=== PATIENT | female | born 1945 | race Caucasian/White ===

== ENCOUNTER 2019-11-08 17:02 | Inpatient (IN) ==
[2019-11-08 17:11] VITALS: BMI 18.8
--- NOTE | 2019-11-08 18:10 | DR.GENAD ---
HPI Time Seen Time Seen by Provider: 11/08/19 18:09 PCP Primary Care Physician: NOEL HPI Comment HPI Comment: PATIENT IS 74YR OLD FEMALE IN ER WITH LOW BLOOD PRESSURE. PATIENT IS FROM [facility] VIA EMS WITH LOW BLOOD PRESSURE. SHE IS BEING RUNNING FEVER FOR FEW DAYS. SWAB FOR COVID 19 YESTERDAY. REPORT PENDING. SHE IS WEAK AND SLIGHTLY CONFUSED. DENIES CHEST PAIN OR ABDOMINAL PAIN. Complaint/Symptoms Chief Complaint Doctors Comments: LOW BLOOD PRESSURE, FEVER AND INCREASING SOB TIMES FEW DAYS. Chief Complaint:: CHRISTINE CAREY. EMS BRINGS PT. IN FROM [facility] WITH C/O HYPOTENSION. PT. WAS TESTED YESTERDAY FOR COVID 19. PT. STATES SHE HAS BEEN HAVING A FEVER FOR A FEW DAYS AND HAS SHORTNESS OF BREATH. COVID-19 Coronavirus risk:travel/contact w/high risk person: Yes Has patient experienced Coronavirus symptoms: Yes Coronavirus symptoms experienced: Fever, Coughing and Shortness of Breath Nurses notes reviewed Nurses Notes Review: Yes Source History Provided: Patient and EMS Mode of Arrival Mode of Arrival: EMS Timing Onset of Chief Complaint: 11/08/19 Came on: Suddenly Duration Duration: Constant Duration: Days PMH PMH Past Medical History: Yes Past Medical History: Anemia, COPD, Depression, Dyslipidemia, GERD and Hypertension Past Medical History Comment: BIPOLAR, ARF Past Surgical History: Yes Family History History of Family Medical Conditions: No Social History Does patient currently use any type of tobacco product: No Have you used tobacco products in the last 12 months: No Type of Tobacco Use: None Does any household member use tobacco: No Alcohol Use: None Do you use any recreational Drugs:: No Lives Where: Intermediate Travel Risk Coronavirus risk:travel/contact w/high risk person: Yes Has patient experienced Coronavirus symptoms: Yes Coronavirus symptoms experienced: Fever, Coughing and Shortness of Breath Infectious screening In the last 2 months have you had wt loss of >10#?: NO Have you had fever, night sweats or hemotysis?: No Have you traveled outside the country in the last 6 months?: No Isolation: Droplet ROS Review of Systems Constitutional: See HPI, Fever, Malaise, Weakness and Fatigue Eyes: No Symptoms Reported and See HPI; negative Blurred Vision and Diplopia ENTM: See HPI, Nose Discharge and Nose Congestion; negative Ear Pain and Throat Pain Respiratoy: No Symptoms Reported, See HPI, Moist Cough and Short of Breath; negative Wheezing Cardiovascular: No Symptoms Reported and See HPI; negative Chest Pain and Edema Gastrointestinal/Abdominal: See HPI and Nausea; negative Abdominal Pain and Diarrhea Genitourinary: See HPI and Other (DECREASE URINE OUT PUT.); negative Dysuria Neurological: See HPI, Weakness and Other (AMS.); negative Headache and Dizziness Musculoskeletal: See HPI and Muscle Pain; negative Back Pain Integumentary: See HPI and Dryness; negative Change in Color, Rash and Juandice Hematologic/Lymphatic: No Symptoms Reported and See HPI; negative Easy Bruising and Swollen Glands Endocrine: See HPI, Increased Thirst, Increased Urine (DECREASE URINE OUT PUT.) and Decreased Appetite Psychiatric: No Symptoms Reported and See HPI All Other Systems: Reviewed and Negative PE Vital Signs Vitals: Temperature 98.8 F Pulse Rate [Right Brachial] 69 Pulse Rate 73 Respiratory Rate 20 Blood Pressure [Right Arm] 129/81 Blood Pressure 154/92 O2 Sat by Pulse Oximetry 97 General Limitations: No Limitations General Appearance: In Distress and Other (CONFUSE.) Head Head Exam: Normal Inspection and Atraumatic Eyes Eye exam: Normal Appearance and PERRL; negative Scleral Icterus and Conjunctival Injection ENT ENT Exam: Normal Exam, Normal Oropharynx, Normal External Ear Exam and TM's Normal Bilaterally External Ear Exam: Normal External Inspection; negative Mastoid Tenderness TM/Canal Exam: Bilateral: Normal Nose Exam: Normal Nose Exam Mouth Exam: Normal Inspection; negative Lip Swelling and Tongue Swelling Throat Exam: Normal Inspection; negative Tonsillar Erythema, Tonsillomegaly and Tonsillar Exudate Neck Neck Exam: Normal Inspection and Trachea Midline; negative Tenderness and Lymphadenopathy Chest Chest Inspection: Normal Inspection and Symmetric Chest Wall Rise; negative Tenderness Respiratory Respiratory Exam: Respiratory Distress; negative Accessory Muscle Use and Chest Wall Tenderness Respiratory Exam: Bilateral: Rhonchi and Lower: Rhonchi Cardiovascular Cardiovascular Exam: Regular Rate, Normal Rhythm and Normal Heart Sounds; negative Systolic Murmur and Diastolic Murmur Abdominal Exam Abdominal Exam: Normal Inspection, Normal Bowel Sounds and Soft; negative Tenderness Extremities Extremities Exam: Normal Inspection and Normal Capillary Refill; negative Tenderness, Edema and Calf Tenderness Back Back Exam: Normal Inspection; negative Tenderness, (R) CVA Tenderness and (L) CVA Tenderness Neurologic Neurological Exam: Alert, Oriented X3 and Other (AMS.); negative Motor Sensory Deficit Psychiatric Psychiatric Exam: Flat Affect Skin Skin Exam: Dry MDM Differential Diagnosis Differential Diagnosis: AMS, CVA, SEPSIS, HYPOTENSION, DEHYDRATION, UTI. COURSE Treatment Treatment: SEE ORDERS. Education/Counseling Education/Counseling: Patient Educated On: Diagnosis ROR Labs Reviewed Laboratory Results Reviewed?: Yes Result Diagrams: 11/12/19 04:35 11/12/19 04:35 Laboratory: 11/08/19 18:00 Blood Blood Culture - Final 11/08/19 17:50 Blood Blood Culture - Final WBC 1.7 X10^3/uL (3.6-10.0) L* 11/09/19 06:10 RBC 3.83 X10^6/uL (3.5-5.4) 11/09/19 06:10 Hgb 11.1 g/dL (12.0-16.0) L 11/09/19 06:10 Hct 33.7 % (36.0-47.0) L 11/09/19 06:10 MCV 87.9 fL (80.0-100.0) 11/09/19 06:10 MCH 29.0 pg (27.0-34.0) 11/09/19 06:10 MCHC 33.0 g/dL (33.0-35.0) 11/09/19 06:10 RDW 14.7 % (11.6-16.5) 11/09/19 06:10 Plt Count 139 X10^3/uL (150.0-450.0) L 11/09/19 06:10 Plt Count Comment Adequate (ADEQUATE) 11/09/19 06:10 MPV 8.0 fL (7.4-11.0) 11/09/19 06:10 Neut % (Auto) 59.2 % (42.0-75.0) 11/09/19 06:10 Lymph % (Auto) 30.0 % (21.0-51.0) 11/09/19 06:10 [place] % (Auto) 10.6 % (0.0-13.0) 11/09/19 06:10 Eos % (Auto) 0.0 % (0.9-2.9) L 11/09/19 06:10 Baso % (Auto) 0.2 % (0.2-1.0) 11/09/19 06:10 Neut # (Auto) 1.0 x10^3/uL (2.2-4.8) L 11/09/19 06:10 Lymph # (Auto) 0.5 X10^3/uL (1.3-2.9) L 11/09/19 06:10 [place] # (Auto) 0.2 x10^3/uL (0.3-0.8) L 11/09/19 06:10 Eos # (Auto) 0.0 x10^3/uL (0.0-0.2) 11/09/19 06:10 Baso # (Auto) 0.0 X10^3/uL (0.0-0.1) 11/09/19 06:10 Absolute Nucleated RBC 0.1 /100WBC 11/09/19 06:10 Total Counted 50 11/09/19 06:10 Neutrophils % (Manual) 62 % (39-76) 11/09/19 06:10 Lymphocytes % (Manual) 32 % (13-43) 11/09/19 06:10 Monocytes % (Manual) 6 % (4-9) 11/09/19 06:10 Plt Morphology Comment Normal (NORMAL) 11/09/19 06:10 RBC Morphology Normal (NORMAL) 11/09/19 06:10 Sample Site Lr 11/08/19 18:23 ABG pH 7.430 (7.35-7.45) 11/08/19 18:23 ABG pCO2 44.0 mmHg (35.0-45.0) 11/08/19 18:23 ABG pO2 88.0 mmHg (80.0-100.0) 11/08/19 18:23 ABG HCO3 29.2 mmol/L (22-26) H 11/08/19 18:23 ABG O2 Saturation 97.0 % (90-100) 11/08/19 18:23 ABG Base Excess 4.3 mmol/L (-2.0-2.0) H 11/08/19 18:23 David Test Pos 11/08/19 18:23 A-a Gradient 7.0 mmHg 11/08/19 18:23 FiO2 21.0 11/08/19 18:23 Blood Gas Comments Jeff well cb 11/08/19 18:23 Sodium 137 mmol/L (136-145) 11/09/19 06:10 Corrected Sodium 138 mmol/L (136-145) 11/09/19 06:10 Potassium 4.2 mmol/L (3.5-5.1) 11/09/19 06:10 Chloride 100 mmol/L (98-107) 11/09/19 06:10 Carbon Dioxide 28.6 mmol/L (21-32) 11/09/19 06:10 BUN 29 mg/dL (7-18) H 11/09/19 06:10 Creatinine 1.39 mg/dL (0.55-1.02) H 11/09/19 06:10 Est GFR (MDRD) Af Amer 48 (>60) L 11/09/19 06:10 Est GFR (MDRD) Non-Af 40 (>60) L 11/09/19 06:10 Glucose 143 mg/dL (65-99) H 11/09/19 06:10 Lactic Acid 1.0 mmol/L (0.4-2.0) 11/08/19 18:00 Calcium 7.7 mg/dL (8.5-10.1) L 11/09/19 06:10 Corrected Calcium 8.5 mg/dL (8.5-10.1) 11/09/19 06:10 Ferritin 244 ng/mL (8-252) 11/08/19 18:00 Total Bilirubin 0.30 mg/dL (0.2-1.0) 11/09/19 06:10 AST 23 Units/L (15-37) 11/09/19 06:10 ALT 21 Units/L (12-78) 11/09/19 06:10 Alkaline Phosphatase 97 Units/L (46-116) 11/09/19 06:10 Creatine Kinase 55 Units/L (26-192) 11/08/19 18:00 CK-MB (CK-2) < 1.0 ng/mL (0-4.0) 11/08/19 18:00 CK/CKMB % Calc 1.8 % (<4) 11/08/19 18:00 Troponin I < 0.02 ng/mL (0-1.5) 11/08/19 18:00 C-Reactive Protein 49.20 mg/L (0-3.0) H 11/08/19 18:00 Total Protein 6.8 g/dL (6.4-8.2) 11/09/19 06:10 Albumin 3.0 g/dL (3.4-5.0) L 11/09/19 06:10 Globulin 3.8 g/dL (2.5-4.5) 11/09/19 06:10 Albumin/Globulin Ratio 0.8 Ratio (1.1-2.1) L 11/09/19 06:10 Other Results Comments: IMPRESSION Hazy opacities throughout the right lung and left lung base which could represent atypical pulmonary edema and/or early infiltrates from pneumonia. Recommend short-term follow-up. XRAY XRAY Interpreted by: Radiologist (REPORT NOTED.) and Self EKG Rate: 76 [place]: Normal Rhythm: NSR Block: None Hypertrophy: None ST: Normal (BASELINE WONDERLING.) Opioid Opioid Risk Tool Age (Joao box if 16-45): No History of Preadolescent Sexual Abuse: No Total: 0 Total Score Risk Category: Low Risk Copyright: Galvez predicting aberrant behaviors Diagnosis Discharge Problem: COVID-19, Acute dehydration Pneumonia Qualifiers: Pneumonia type: due to unspecified organism Laterality: bilateral Lung location: lower lobe of lung Qualified Code(s): J18.9 - Pneumonia, unspecified organism Hypotension Qualifiers: Hypotension type: unspecified hypotension type Qualified Code(s): I95.9 - Hypotension, unspecified Leukopenia Qualifiers: Leukopenia type: unspecified Qualified Code(s): D72.819 - Decreased white blood cell count, unspecified Instructions Forms: Excuse From Work Precautions for COVID19 Patient Portal Social Distancing
[2019-11-08 18:29] LABS: BASOPHILS % (AUTO) 0.2 % (0.2-1.0); EOSINOPHILS % (AUTO) 0.8 % (0.9-2.9); HEMATOCRIT 33.5 % (36.0-47.0); LYMPHOCYTES # (AUTO) 0.6 X10^3/uL (1.3-2.9); LYMPHOCYTES % (AUTO) 17.2 % (21.0-51.0); MEAN CORPUSCULAR HEMOGLOBIN 28.8 pg (27.0-34.0); MEAN CORPUSCULAR HGB CONC 32.9 g/dL (33.0-35.0); MEAN CORPUSCULAR VOLUME 87.4 fL (80.0-100.0); MEAN PLATELET VOLUME 8.1 fL (7.4-11.0); MONOCYTES # (AUTO) 0.4 x10^3/uL (0.3-0.8); MONOCYTES % (AUTO) 12.7 % (0.0-13.0); NEUTROPHILS # (AUTO) 2.3 x10^3/uL (2.2-4.8); NEUTROPHILS % (AUTO) 69.1 % (42.0-75.0); PLATELET COUNT 137 X10^3/uL (150.0-450.0); RED BLOOD COUNT 3.83 X10^6/uL (3.5-5.4); RED CELL DISTRIBUTION WIDTH 14.8 % (11.6-16.5); WHITE BLOOD COUNT 3.3 X10^3/uL (3.6-10.0)
[2019-11-08 18:30] LABS: ABG ALLEN TEST POS; ABG BASE EXCESS 4.3 mmol/L (-2.0-2.0); ABG HCO3 29.2 mmol/L (22-26)
--- NOTE | 2019-11-08 18:38 | RAD ---
HISTORYSOB, FEVERSTUDYCHEST, 1 VIEWCOMPARISONNoneFINDINGSThe heart is normal. The pulmonary vessels are engorged ill-defined centrally there is hazy bibasilar opacities which is more prominent on the right extends into the right upper lobe. No effusion is seen.IMPRESSIONHazy opacities throughout the right lung and left lung base which could represent atypical pulmonary edema and/or early infiltrates from pneumonia. Recommend short-term follow-up.Electronically signed by: BONI MARTINEZ (Nov 08, 2019 18:37:47)
[2019-11-08 18:39] LABS: ALANINE AMINOTRANSFERASE 15 Units/L (12-78); ALBUMIN 3.3 g/dL (3.4-5.0); ALKALINE PHOSPHATASE 98 Units/L (46-116); ASPARTATE AMINO TRANSFERASE 22 Units/L (15-37); BLOOD UREA NITROGEN 30 mg/dL (7-18); CALCIUM 7.8 mg/dL (8.5-10.1); CHLORIDE 96 mmol/L (98-107); COR CA(FOR HYPOALB) 8.4 mg/dL (8.5-10.1); CREATININE 1.44 mg/dL (0.55-1.02); SODIUM 134 mmol/L (136-145); TOTAL PROTEIN 6.9 g/dL (6.4-8.2); eGFR NON BLACK RACES 38 (>60)
[2019-11-08] MEDS ORDERED: ZOSYN VIAL 3.375 GRAMS 3.375 G in NS 100 ML IV + SPIKE MINIBAG* 100 ML IV ONE (19:28)
[2019-11-08] MEDS ORDERED: NS 1000 ML 1,000 ML IV ONE (19:29)
[2019-11-08 20:00] LABS: CKMB % 1.8 % (<4); CREATINE KINASE 55 Units/L (26-192); CREATINE KINASE MB < 1.0 ng/mL (0-4.0); TROPONIN I < 0.02 ng/mL (0-1.5)
[2019-11-08] MEDS ORDERED: DUONEB 0.5 MG/3 MG (3 mL) NEB ONE (20:10)
[2019-11-08] MEDS ORDERED: DECADRON INJ IV ONE (20:10)
[2019-11-08] MEDS ORDERED: ZOSYN VIAL 3.375 GRAMS IV ONE (20:17)
[2019-11-08] MEDS ORDERED: DECADRON INJ ONE (20:17)
[2019-11-08] MEDS ORDERED: NS 100 ML IV + SPIKE MINIBAG* 100 ML IV ONE (20:17)
[2019-11-08] MEDS ORDERED: NS 1000 ML 1,000 ML ONE (20:18)
[2019-11-08] MEDS ORDERED: NICOTINE PATCH TD ONE (20:56)
[2019-11-08] MEDS: NICOTINE PATCH TD SCH (21:20)
[2019-11-09] MEDS ORDERED: DECADRON INJ IM ONE (06:00)
[2019-11-09] MEDS ORDERED: LEVAQUIN PREMIX IV 750 MG 750 MG/150 ML BAG IV ONE ×2 (06:08→07:35)
[2019-11-09] MEDS ORDERED: ZOSYN VIAL 3.375 GRAMS IV ONE ×2 (06:12→15:12)
[2019-11-09] MEDS ORDERED: DECADRON INJ ONE (06:12)
[2019-11-09] MEDS ORDERED: NS 100 ML IV + SPIKE MINIBAG* 100 ML IV ONE (06:12)
[2019-11-09] MEDS: ZOSYN VIAL 3.375 GRAMS 3.375 G in NS 100 ML IV + SPIKE MINIBAG* 100 ML IV SCH ×3 (06:19→21:20)
[2019-11-09 06:20] LABS: BASOPHILS % (AUTO) 0.2 % (0.2-1.0); HEMATOCRIT 33.7 % (36.0-47.0); HEMOGLOBIN 11.1 g/dL (12.0-16.0); LYMPHOCYTES # (AUTO) 0.5 X10^3/uL (1.3-2.9); MEAN CORPUSCULAR VOLUME 87.9 fL (80.0-100.0); MONOCYTES # (AUTO) 0.2 x10^3/uL (0.3-0.8); MONOCYTES % (AUTO) 10.6 % (0.0-13.0); NEUTROPHILS % (AUTO) 59.2 % (42.0-75.0); PLATELET COUNT 139 X10^3/uL (150.0-450.0); RED BLOOD COUNT 3.83 X10^6/uL (3.5-5.4); RED CELL DISTRIBUTION WIDTH 14.7 % (11.6-16.5)
[2019-11-09] MEDS ORDERED: DECADRON INJ PRESERVATIVE-FREE IVP ONE (06:20)
[2019-11-09 06:23] LABS: WHITE BLOOD COUNT 1.7 X10^3/uL (3.6-10.0)
[2019-11-09 06:31] LABS: CALCIUM 7.7 mg/dL (8.5-10.1); CARBON DIOXIDE 28.6 mmol/L (21-32); COR CA(FOR HYPOALB) 8.5 mg/dL (8.5-10.1); CREATININE 1.39 mg/dL (0.55-1.02); TOTAL PROTEIN 6.8 g/dL (6.4-8.2)
[2019-11-09 07:31] LABS: PLATELET MORPHOLOGY COMMENT NORMAL (NORMAL)
[2019-11-09] MEDS ORDERED: NS 1000 ML 1,000 ML ONE (12:32)
[2019-11-09] MEDS ORDERED: SOLU-Medrol 40 MG VIAL ONE (12:32)
[2019-11-09] MEDS: NS 1000 ML 1,000 ML IV SCH (12:47)
[2019-11-09] MEDS: SOLU-Medrol 40 MG VIAL IVP SCH ×3 (12:47→21:20)
[2019-11-09] MEDS ORDERED: NS 100 ML IV 100 ML IV ONE (15:12)
[2019-11-09] MEDS: NICOTINE PATCH TD SCH ×2 (15:46→21:17)
[2019-11-09] MEDS ORDERED: DUONEB 0.5 MG/3 MG (3 mL) NEB ONE (17:31)
[2019-11-09] MEDS ORDERED: DUONEB 0.5 MG/3 MG (3 mL) NEB PRN (17:44)
[2019-11-09] MEDS ORDERED: REMDESIVIR (INVESTIGATIONAL DRUG GS-5734) 200 MG in NS 250 ML IV 250 ML IV SCH (20:02)
[2019-11-09] MEDS ORDERED: TYLENOL 325 MG TAB PO ONE (21:31)
[2019-11-09] MEDS ORDERED: PEPCID TAB 20 MG ONE (21:31)
[2019-11-09] MEDS: TYLENOL 325 MG TAB PO PRN (21:52)
[2019-11-09] MEDS: LIPITOR TAB 10 MG PO SCH (21:52)
[2019-11-09] MEDS: PEPCID TAB 20 MG PO SCH (21:53)
[2019-11-09] MEDS: TEMAZEPAM 7.5 MG PO SCH (21:54)
--- NOTE | 2019-11-09 22:02 | DR.H&P ---
H&P History & Physical for Day of: H&P Date: 11/09/19 Chief Complaint Chief Complaint: Weakness, shortness of breath Allergies Allergies Allergy/AdvReac Type Severity Reaction Status Date / Time iodine Allergy Verified 11/08/19 17:11 NSAIDS (Non-Steroidal Allergy Verified 11/08/19 17:11 Anti-Inflamma History of Present Illness History of Present Illness: Pt is a 74 yo f pmhx COPD, HTN, Dementia, presenting from nursing facility in [place], [place] w/ complaints of feeling tired, fever, and some shortness of breath. She was recently exposed to COVID19 individual and was tested on 11/06. Labs/imaging:Wbc 1.7, Hgb 11.1, Plt 139, Na 137, K 4.2, Cr 1.39, Gluc 143, CRP 49.2, AB.43/44/88/29/97% on RA. CXR: hazy opacities throughout the R lung and Lung base could be atypical pulmonary edema or early infiltrates from pneumonia. BloodCx pending. She was started on Remdesivir, awaiting results of COVID19 testing, IV Solumedrol, supplemental O2 2L, immune supplements, Bronchodilators, Pneumonia protocol. Home medications were resumed. Will continue to monitor and follow up labs/imaging in the morning. Past Medical History Past Medical History: Anemia, COPD, Dementia, Depression, Dyslipidemia, GERD and Hypertension Past Surgical History Surgical History: Unknown Social History Does patient currently use any type of tobacco product: No Have you used tobacco products in the last 12 months: No Type of Tobacco Use: None Does any household member use tobacco: No Alcohol Use: None Drug Use: None Medications Home Medications: iodine Allergy (Verified 11/08/19 17:11) NSAIDS (Non-Steroidal Anti-Inflamma Allergy (Verified 11/08/19 17:11) CONTINUE taking the following medications albuterol sulfate 2 puff INHALATION Q6H PRN 11/08/19 [History] albuterol sulfate [Ventolin HFA] 2 puff INHALATION Q4-6H PRN 11/08/19 [History] ascorbic acid (vitamin C) [Vitamin C] 1,000 mg PO Q12H 11/08/19 [History] atorvastatin 10 mg PO QHS 11/08/19 [History] azithromycin [Zithromax] 250 mg PO DAILY 11/08/19 [History] calcium carbonate [Tums] 200 mg PO ONCE 11/08/19 [History] cyclobenzaprine 10 mg PO TID 11/08/19 [History] dextromethorphan-guaifenesin [Tussin DM] 10 ml PO Q4-6H PRN 11/08/19 [History] docusate sodium [Colace] 100 mg PO DAILY 11/08/19 [History] duloxetine 60 mg PO DAILY 11/08/19 [History] famotidine 20 mg PO BID 11/08/19 [History] hydrochlorothiazide 12.5 mg PO QAM 11/08/19 [History] hydrocodone-acetaminophen 1 tab PO Q8H PRN 11/08/19 [History] lisinopril 10 mg PO DAILY 11/08/19 [History] metoprolol succinate 25 mg PO DAILY 11/08/19 [History] nicotine 1 patch TRANSDERMAL Q24H 11/08/19 [History] omeprazole 20 mg PO DAILY 11/08/19 [History] ondansetron HCl [Zofran] 8 mg PO Q8H PRN 11/08/19 [History] quetiapine 100 mg PO TID 11/08/19 [History] temazepam 7.5 mg PO QHS 11/08/19 [History] tiotropium bromide [Spiriva with HandiHaler] 1 cap INHALATION DAILY 11/08/19 [History] tramadol 50 mg PO BID PRN 11/08/19 [History] zinc sulfate 220 mg PO BID 11/08/19 [History] Labs Result Diagrams: 11/10/19 04:15 11/10/19 04:15 Labs: Laboratory WBC 1.7 X10^3/uL (3.6-10.0) L* 11/09/19 06:10 RBC 3.83 X10^6/uL (3.5-5.4) 11/09/19 06:10 Hgb 11.1 g/dL (12.0-16.0) L 11/09/19 06:10 Hct 33.7 % (36.0-47.0) L 11/09/19 06:10 MCV 87.9 fL (80.0-100.0) 11/09/19 06:10 MCH 29.0 pg (27.0-34.0) 11/09/19 06:10 MCHC 33.0 g/dL (33.0-35.0) 11/09/19 06:10 RDW 14.7 % (11.6-16.5) 11/09/19 06:10 Plt Count 139 X10^3/uL (150.0-450.0) L 11/09/19 06:10 Plt Count Comment Adequate (ADEQUATE) 11/09/19 06:10 MPV 8.0 fL (7.4-11.0) 11/09/19 06:10 Neut % (Auto) 59.2 % (42.0-75.0) 11/09/19 06:10 Lymph % (Auto) 30.0 % (21.0-51.0) 11/09/19 06:10 [place] % (Auto) 10.6 % (0.0-13.0) 11/09/19 06:10 Eos % (Auto) 0.0 % (0.9-2.9) L 11/09/19 06:10 Baso % (Auto) 0.2 % (0.2-1.0) 11/09/19 06:10 Neut # (Auto) 1.0 x10^3/uL (2.2-4.8) L 11/09/19 06:10 Lymph # (Auto) 0.5 X10^3/uL (1.3-2.9) L 11/09/19 06:10 [place] # (Auto) 0.2 x10^3/uL (0.3-0.8) L 11/09/19 06:10 Eos # (Auto) 0.0 x10^3/uL (0.0-0.2) 11/09/19 06:10 Baso # (Auto) 0.0 X10^3/uL (0.0-0.1) 11/09/19 06:10 Absolute Nucleated RBC 0.1 /100WBC 11/09/19 06:10 Total Counted 50 11/09/19 06:10 Neutrophils % (Manual) 62 % (39-76) 11/09/19 06:10 Lymphocytes % (Manual) 32 % (13-43) 11/09/19 06:10 Monocytes % (Manual) 6 % (4-9) 11/09/19 06:10 Plt Morphology Comment Normal (NORMAL) 11/09/19 06:10 RBC Morphology Normal (NORMAL) 11/09/19 06:10 Sample Site Lr 11/08/19 18:23 ABG pH 7.430 (7.35-7.45) 11/08/19 18:23 ABG pCO2 44.0 mmHg (35.0-45.0) 11/08/19 18:23 ABG pO2 88.0 mmHg (80.0-100.0) 11/08/19 18:23 ABG HCO3 29.2 mmol/L (22-26) H 11/08/19 18:23 ABG O2 Saturation 97.0 % (90-100) 11/08/19 18:23 ABG Base Excess 4.3 mmol/L (-2.0-2.0) H 11/08/19 18:23 David Test Pos 11/08/19 18:23 A-a Gradient 7.0 mmHg 11/08/19 18:23 FiO2 21.0 11/08/19 18:23 Blood Gas Comments Jeff well cb 11/08/19 18:23 Sodium 137 mmol/L (136-145) 11/09/19 06:10 Corrected Sodium 138 mmol/L (136-145) 11/09/19 06:10 Potassium 4.2 mmol/L (3.5-5.1) 11/09/19 06:10 Chloride 100 mmol/L (98-107) 11/09/19 06:10 Carbon Dioxide 28.6 mmol/L (21-32) 11/09/19 06:10 BUN 29 mg/dL (7-18) H 11/09/19 06:10 Creatinine 1.39 mg/dL (0.55-1.02) H 11/09/19 06:10 Est GFR (MDRD) Af Amer 48 (>60) L 11/09/19 06:10 Est GFR (MDRD) Non-Af 40 (>60) L 11/09/19 06:10 Glucose 143 mg/dL (65-99) H 11/09/19 06:10 Lactic Acid 1.0 mmol/L (0.4-2.0) 11/08/19 18:00 Calcium 7.7 mg/dL (8.5-10.1) L 11/09/19 06:10 Corrected Calcium 8.5 mg/dL (8.5-10.1) 11/09/19 06:10 Ferritin 244 ng/mL (8-252) 11/08/19 18:00 Total Bilirubin 0.30 mg/dL (0.2-1.0) 11/09/19 06:10 AST 23 Units/L (15-37) 11/09/19 06:10 ALT 21 Units/L (12-78) 11/09/19 06:10 Alkaline Phosphatase 97 Units/L (46-116) 11/09/19 06:10 Creatine Kinase 55 Units/L (26-192) 11/08/19 18:00 CK-MB (CK-2) < 1.0 ng/mL (0-4.0) 11/08/19 18:00 CK/CKMB % Calc 1.8 % (<4) 11/08/19 18:00 Troponin I < 0.02 ng/mL (0-1.5) 11/08/19 18:00 C-Reactive Protein 49.20 mg/L (0-3.0) H 11/08/19 18:00 Total Protein 6.8 g/dL (6.4-8.2) 11/09/19 06:10 Albumin 3.0 g/dL (3.4-5.0) L 11/09/19 06:10 Globulin 3.8 g/dL (2.5-4.5) 11/09/19 06:10 Albumin/Globulin Ratio 0.8 Ratio (1.1-2.1) L 11/09/19 06:10 Review of Systems Constitutional: Fever, Chills and Weakness Eyes: No Symptoms Reported ENT: Nose Congestion Respiratory: Cough and Shortness of Breath Cardiovascular: No Symptoms Reported Gastrointestinal: No Symptoms Reported Genitourinary: No Symptoms Reported Musculoskeletal: No Symptoms Reported Skin: No Symptoms Reported Neurological: No Symptoms Reported Physical Exam Vital Signs: Temperature 98.4 F Pulse Rate [Right Brachial] 70 Pulse Rate 81 Respiratory Rate 20 Blood Pressure [Right Arm] 138/64 Blood Pressure 148/88 O2 Sat by Pulse Oximetry 87 Oriented: Person and Place Eyes: Normal Ear: Normal Nose: Normal Throat: Normal Respiratory: Diminished Throughout, Wheezes Throughout, RLL Rales and LLL Rales Cardiovascular: Normal : Normal Auscultation: Bowel Sounds: Normal Palpation: Normal Tenderness: Normal Skin: Normal Musculoskeletal: Normal Psychiatric: Normal Mood Description: Calm Speech Pattern: Clear and Appropriate Assessment/Plan (1) Pneumonia: Status: Acute Plan: Awaiting COVID19 results. Start on remdesivir and IV solumedrol Pneumonia protocol Review H&P Reviewed: Yes Patient was examined?: Yes
--- NOTE | 2019-11-10 04:38 | RAD ---
HISTORYPNEUMONIASTUDYCHEST, 1 [id number]/24/2020FINDINGSThe trachea is midline. The cardiac silhouette is unremarkable. Hazy bibasilar opacities right greater than left, unchanged. No pleural effusion or pneumothorax. The bony thorax is unremarkable.IMPRESSIONHazy bibasilar opacities right greater than left unchanged from 11/08/2019Electronically signed by: Krystian Boothe (Nov 10, 2019 04:37:30)
[2019-11-10 05:02] LABS: BASOPHILS % (AUTO) 0.3 % (0.2-1.0); HEMATOCRIT 31.6 % (36.0-47.0); HEMOGLOBIN 10.6 g/dL (12.0-16.0); LYMPHOCYTES # (AUTO) 0.4 X10^3/uL (1.3-2.9); MEAN CORPUSCULAR HEMOGLOBIN 29.2 pg (27.0-34.0); MEAN CORPUSCULAR HGB CONC 33.6 g/dL (33.0-35.0); MEAN PLATELET VOLUME 8.1 fL (7.4-11.0); MONOCYTES # (AUTO) 0.3 x10^3/uL (0.3-0.8); NEUTROPHILS # (AUTO) 1.2 x10^3/uL (2.2-4.8); NEUTROPHILS % (AUTO) 63.7 % (42.0-75.0); PLATELET COUNT 152 X10^3/uL (150.0-450.0); RED BLOOD COUNT 3.63 X10^6/uL (3.5-5.4); RED CELL DISTRIBUTION WIDTH 14.1 % (11.6-16.5)
[2019-11-10 05:07] LABS: ALBUMIN 2.8 g/dL (3.4-5.0); CALCIUM 7.5 mg/dL (8.5-10.1); CARBON DIOXIDE 27.5 mmol/L (21-32); COR CA(FOR HYPOALB) 8.5 mg/dL (8.5-10.1); CREATININE 1.39 mg/dL (0.55-1.02); TOTAL PROTEIN 6.2 g/dL (6.4-8.2)
[2019-11-10] MEDS: NS 1000 ML 1,000 ML IV SCH ×2 (06:00→19:16)
[2019-11-10] MEDS: SOLU-Medrol 40 MG VIAL IVP SCH ×3 (06:01→21:43)
[2019-11-10] MEDS: ZOSYN VIAL 3.375 GRAMS 3.375 G in NS 100 ML IV + SPIKE MINIBAG* 100 ML IV SCH ×3 (06:01→21:44)
[2019-11-10 06:14] LABS: WHITE BLOOD COUNT 1.9 X10^3/uL (3.6-10.0)
[2019-11-10 06:16] LABS: PLATELET MORPHOLOGY COMMENT NORMAL (NORMAL)
[2019-11-10] MEDS ORDERED: VITAMIN A PO ONE (08:07)
[2019-11-10] MEDS: ZESTRIL TAB 10 MG PO SCH (09:00)
[2019-11-10] MEDS: CYMBALTA PO SCH (09:00)
[2019-11-10] MEDS: PriLOSEC PO SCH (09:00)
[2019-11-10] MEDS: COLACE CAP 100 MG PO SCH (09:00)
[2019-11-10] MEDS: PEPCID TAB 20 MG PO SCH ×2 (09:00→21:42)
[2019-11-10] MEDS: TOPROL XL PO SCH (09:00)
--- NOTE | 2019-11-10 10:04 | PCM.PROG ---
Progress Note Progress Note for Day of Date of Exam: 11/10/19 Subjective Subjective: Pt is a 74 yo f pmhx COPD, HTN, Dementia, admitted for pneumonia. She was recently exposed to COVID19 individual and was tested on 11/06(awaiting results). This morning she is feeling a little better. Reports breathing has improved. No fevers overnight. Labs/imaging: Wbc 1.9, Hgb 10.6, Plt 152, Na 139, K 3.8, Cr 1.39, Gluc 189, CRP 49.2>16.9, CXR: Hazy bibasilar opacities right greater than left unchanged from 11/08/2019. BloodCx pending. Continue treatment course includes Remdesivir, IV Solumedrol, Zosyn, supplemental O2 2L, immune supplements, Bronchodilators, Pneumonia protocol. Will continue to monitor and follow up labs/imaging in the morning. Past Medical Family Social History Past Med/Fam/Surg Hx: No changes since H&P Allergies: Allergies iodine Allergy (Verified 11/08/19 17:11) NSAIDS (Non-Steroidal Anti-Inflamma Allergy (Verified 11/08/19 17:11) Review of Systems ROS: No change since H&P Vital Signs and I&O's Vital Signs: Temperature 98.0 F Pulse Rate [Right Brachial] 96 Pulse Rate 84 Respiratory Rate 20 Blood Pressure [Right Arm] 143/93 Blood Pressure 148/88 O2 Sat by Pulse Oximetry 100 Intake and Output: Intake & Output 11/07/19 11/08/19 11/09/19 11/10/19 23:59 23:59 23:59 23:59 Intake Total 1160 / 1160 480 / 480 Balance 1160 / 1160 480 / 480 Physical Exam Oriented: Person and Place Eyes: Normal Ear: Normal Nose: Normal Throat: Normal Respiratory: Wheezes Cardiovascular: Normal : Normal Auscultation: Bowel Sounds: Normal Tenderness: Normal Skin: Normal Musculoskeletal: Normal Psychiatric: Normal Mood Description: Calm Speech Pattern: Clear and Appropriate Laboratory and Diagnostics Result Diagrams: 11/10/19 04:15 11/10/19 04:15 Labs: Laboratory WBC 1.9 X10^3/uL (3.6-10.0) L* 11/10/19 04:15 RBC 3.63 X10^6/uL (3.5-5.4) 11/10/19 04:15 Hgb 10.6 g/dL (12.0-16.0) L 11/10/19 04:15 Hct 31.6 % (36.0-47.0) L 11/10/19 04:15 MCV 87.0 fL (80.0-100.0) 11/10/19 04:15 MCH 29.2 pg (27.0-34.0) 11/10/19 04:15 MCHC 33.6 g/dL (33.0-35.0) 11/10/19 04:15 RDW 14.1 % (11.6-16.5) 11/10/19 04:15 Plt Count 152 X10^3/uL (150.0-450.0) 11/10/19 04:15 Plt Count Comment Adequate (ADEQUATE) 11/10/19 04:15 MPV 8.1 fL (7.4-11.0) 11/10/19 04:15 Neut % (Auto) 63.7 % (42.0-75.0) 11/10/19 04:15 Lymph % (Auto) 20.0 % (21.0-51.0) L 11/10/19 04:15 [place] % (Auto) 16.0 % (0.0-13.0) H 11/10/19 04:15 Eos % (Auto) 0.0 % (0.9-2.9) L 11/10/19 04:15 Baso % (Auto) 0.3 % (0.2-1.0) 11/10/19 04:15 Neut # (Auto) 1.2 x10^3/uL (2.2-4.8) L 11/10/19 04:15 Lymph # (Auto) 0.4 X10^3/uL (1.3-2.9) L 11/10/19 04:15 [place] # (Auto) 0.3 x10^3/uL (0.3-0.8) 11/10/19 04:15 Eos # (Auto) 0.0 x10^3/uL (0.0-0.2) 11/10/19 04:15 Baso # (Auto) 0.0 X10^3/uL (0.0-0.1) 11/10/19 04:15 Absolute Nucleated RBC 0.1 /100WBC 11/10/19 04:15 Total Counted 100 11/10/19 04:15 Neutrophils % (Manual) 75 % (39-76) 11/10/19 04:15 Lymphocytes % (Manual) 19 % (13-43) 11/10/19 04:15 Monocytes % (Manual) 6 % (4-9) 11/10/19 04:15 Plt Morphology Comment Normal (NORMAL) 11/10/19 04:15 RBC Morphology Normal (NORMAL) 11/10/19 04:15 Sample Site Lr 11/08/19 18:23 ABG pH 7.430 (7.35-7.45) 11/08/19 18:23 ABG pCO2 44.0 mmHg (35.0-45.0) 11/08/19 18:23 ABG pO2 88.0 mmHg (80.0-100.0) 11/08/19 18:23 ABG HCO3 29.2 mmol/L (22-26) H 11/08/19 18:23 ABG O2 Saturation 97.0 % (90-100) 11/08/19 18:23 ABG Base Excess 4.3 mmol/L (-2.0-2.0) H 11/08/19 18:23 David Test Pos 11/08/19 18:23 A-a Gradient 7.0 mmHg 11/08/19 18:23 FiO2 21.0 11/08/19 18:23 Blood Gas Comments Jeff well cb 11/08/19 18:23 Sodium 139 mmol/L (136-145) 11/10/19 04:15 Corrected Sodium 141 mmol/L (136-145) 11/10/19 04:15 Potassium 3.8 mmol/L (3.5-5.1) 11/10/19 04:15 Chloride 102 mmol/L (98-107) 11/10/19 04:15 Carbon Dioxide 27.5 mmol/L (21-32) 11/10/19 04:15 BUN 29 mg/dL (7-18) H 11/10/19 04:15 Creatinine 1.39 mg/dL (0.55-1.02) H 11/10/19 04:15 Est GFR (MDRD) Af Amer 48 (>60) L 11/10/19 04:15 Est GFR (MDRD) Non-Af 40 (>60) L 11/10/19 04:15 Glucose 189 mg/dL (65-99) H 11/10/19 04:15 Lactic Acid 1.0 mmol/L (0.4-2.0) 11/08/19 18:00 Calcium 7.5 mg/dL (8.5-10.1) L 11/10/19 04:15 Corrected Calcium 8.5 mg/dL (8.5-10.1) 11/10/19 04:15 Ferritin 244 ng/mL (8-252) 11/08/19 18:00 Total Bilirubin 0.30 mg/dL (0.2-1.0) 11/10/19 04:15 AST 22 Units/L (15-37) 11/10/19 04:15 ALT 16 Units/L (12-78) 11/10/19 04:15 Alkaline Phosphatase 80 Units/L (46-116) 11/10/19 04:15 Creatine Kinase 55 Units/L (26-192) 11/08/19 18:00 CK-MB (CK-2) < 1.0 ng/mL (0-4.0) 11/08/19 18:00 CK/CKMB % Calc 1.8 % (<4) 11/08/19 18:00 Troponin I < 0.02 ng/mL (0-1.5) 11/08/19 18:00 C-Reactive Protein 16.90 mg/L (0-3.0) H 11/10/19 04:15 Total Protein 6.2 g/dL (6.4-8.2) L 11/10/19 04:15 Albumin 2.8 g/dL (3.4-5.0) L 11/10/19 04:15 Globulin 3.4 g/dL (2.5-4.5) 11/10/19 04:15 Albumin/Globulin Ratio 0.8 Ratio (1.1-2.1) L 11/10/19 04:15 Plan (1) Pneumonia: Status: Acute Plan: Awaiting COVID19 results. Continue remdesivir, IV solumedrol, Zosyn, bronchodilators. Pneumonia protocol
[2019-11-10] MEDS: LOVENOX INJ 40 MG SYR SC SCH (11:15)
[2019-11-10] MEDS: ZINC SULFATE PO SCH (11:18)
[2019-11-10] MEDS: VITAMIN C PO SCH (11:18)
[2019-11-10] MEDS: VITAMIN D3 125 mcg (5,000 UNITS) PO SCH (11:19)
[2019-11-10] MEDS: REMDESIVIR (INVESTIGATIONAL DRUG GS-5734) 100 MG in NS 250 ML IV 250 ML IV SCH (21:41)
[2019-11-10] MEDS: LIPITOR TAB 10 MG PO SCH (21:41)
[2019-11-10] MEDS: NICOTINE PATCH TD SCH (21:42)
[2019-11-10] MEDS: TEMAZEPAM 7.5 MG PO SCH (21:43)
[2019-11-11 04:39] LABS: BASOPHILS % (AUTO) 0.1 % (0.2-1.0); HEMATOCRIT 31.5 % (36.0-47.0); HEMOGLOBIN 10.5 g/dL (12.0-16.0); LYMPHOCYTES # (AUTO) 0.5 X10^3/uL (1.3-2.9); LYMPHOCYTES % (AUTO) 15.8 % (21.0-51.0); MEAN CORPUSCULAR HGB CONC 33.3 g/dL (33.0-35.0); MEAN PLATELET VOLUME 7.9 fL (7.4-11.0); MONOCYTES # (AUTO) 0.4 x10^3/uL (0.3-0.8); NEUTROPHILS # (AUTO) 2.5 x10^3/uL (2.2-4.8); NEUTROPHILS % (AUTO) 73.1 % (42.0-75.0); PLATELET COUNT 179 X10^3/uL (150.0-450.0); RED BLOOD COUNT 3.62 X10^6/uL (3.5-5.4); RED CELL DISTRIBUTION WIDTH 14.3 % (11.6-16.5); WHITE BLOOD COUNT 3.4 X10^3/uL (3.6-10.0)
[2019-11-11 04:45] LABS: ALANINE AMINOTRANSFERASE 14 Units/L (12-78); ALBUMIN 2.8 g/dL (3.4-5.0); ALKALINE PHOSPHATASE 74 Units/L (46-116); ASPARTATE AMINO TRANSFERASE 21 Units/L (15-37); BLOOD UREA NITROGEN 24 mg/dL (7-18); CALCIUM 7.8 mg/dL (8.5-10.1); CARBON DIOXIDE 26.1 mmol/L (21-32); CHLORIDE 105 mmol/L (98-107); COR CA(FOR HYPOALB) 8.8 mg/dL (8.5-10.1); COR NA(FOR HYPERGLY) 142 mmol/L (136-145); CREATININE 1.14 mg/dL (0.55-1.02); SODIUM 140 mmol/L (136-145); TOTAL PROTEIN 6.1 g/dL (6.4-8.2); eGFR NON BLACK RACES 50 (>60)
[2019-11-11] MEDS: SOLU-Medrol 40 MG VIAL IVP SCH ×3 (05:43→22:18)
[2019-11-11] MEDS: ZESTRIL TAB 10 MG PO SCH ×2 (05:43→09:45)
[2019-11-11] MEDS: ZOSYN VIAL 3.375 GRAMS 3.375 G in NS 100 ML IV + SPIKE MINIBAG* 100 ML IV SCH ×3 (05:43→22:18)
[2019-11-11] MEDS: LOVENOX INJ 40 MG SYR SC SCH (09:09)
[2019-11-11] MEDS: VITAMIN C PO SCH (09:10)
[2019-11-11] MEDS: COLACE CAP 100 MG PO SCH (09:10)
[2019-11-11] MEDS: CYMBALTA PO SCH (09:43)
[2019-11-11] MEDS: TOPROL XL PO SCH (09:44)
[2019-11-11] MEDS: PriLOSEC PO SCH (09:44)
[2019-11-11] MEDS: PEPCID TAB 20 MG PO SCH ×2 (09:44→20:37)
[2019-11-11] MEDS: VITAMIN D3 125 mcg (5,000 UNITS) PO SCH (09:45)
[2019-11-11] MEDS: ZINC SULFATE PO SCH (09:46)
--- NOTE | 2019-11-11 10:39 | PCM.PROG ---
Progress Note Progress Note for Day of Date of Exam: 11/11/19 Subjective Subjective: Pt is a 74 yo f pmhx COPD, HTN, Dementia, admitted for pneumonia. She was exposed to COVID19 individual and was tested on 11/06(awaiting results). This morning she is resting in bed on 2Lnc. She does not have any acute concerns. Reports breathing has improved. Afebrile overnight. Labs/imaging: Wbc 3.4, Hgb 10.5, Plt 179, Na 140, K 4, Cr 1.39>1.14, Gluc 179, CRP 49.2>16.9>10, BloodCx negative. Treatment course includes Remdesivir, IV Solumedrol, Zosyn, supplemental O2 2L, immune supplements, Bronchodilators, Pneumonia protocol. Continue to monitor and follow up labs/imaging in the morning. Past Medical Family Social History Past Med/Fam/Surg Hx: No changes since H&P Allergies: Allergies iodine Allergy (Verified 11/08/19 17:11) NSAIDS (Non-Steroidal Anti-Inflamma Allergy (Verified 11/08/19 17:11) Review of Systems ROS: No change since H&P Vital Signs and I&O's Vital Signs: Temperature 98.5 F Pulse Rate [Right Brachial] 71 Pulse Rate 84 Respiratory Rate 14 Blood Pressure [Right Arm] 144/76 Blood Pressure 148/88 O2 Sat by Pulse Oximetry 97 Intake and Output: Intake & Output 11/08/19 11/09/19 11/10/19 11/11/19 23:59 23:59 23:59 23:59 Intake Total 1160 / 1160 2580 / 2580 900 / 900 Balance 1160 / 1160 2580 / 2580 900 / 900 Physical Exam Oriented: Person and Place Eyes: Normal Ear: Normal Nose: Normal Throat: Normal Respiratory: Diminished Cardiovascular: Normal : Normal Auscultation: Bowel Sounds: Normal Tenderness: Normal Skin: Normal Musculoskeletal: Normal Psychiatric: Normal Mood Description: Calm Speech Pattern: Clear Laboratory and Diagnostics Result Diagrams: 11/11/19 04:05 11/11/19 04:05 Labs: 11/08/19 18:00 Blood Blood Culture - Preliminary 11/08/19 17:50 Blood Blood Culture - Preliminary Laboratory WBC 3.4 X10^3/uL (3.6-10.0) L 11/11/19 04:05 RBC 3.62 X10^6/uL (3.5-5.4) 11/11/19 04:05 Hgb 10.5 g/dL (12.0-16.0) L 11/11/19 04:05 Hct 31.5 % (36.0-47.0) L 11/11/19 04:05 MCV 87.0 fL (80.0-100.0) 11/11/19 04:05 MCH 29.0 pg (27.0-34.0) 11/11/19 04:05 MCHC 33.3 g/dL (33.0-35.0) 11/11/19 04:05 RDW 14.3 % (11.6-16.5) 11/11/19 04:05 Plt Count 179 X10^3/uL (150.0-450.0) 11/11/19 04:05 Plt Count Comment Adequate (ADEQUATE) 11/10/19 04:15 MPV 7.9 fL (7.4-11.0) 11/11/19 04:05 Neut % (Auto) 73.1 % (42.0-75.0) 11/11/19 04:05 Lymph % (Auto) 15.8 % (21.0-51.0) L 11/11/19 04:05 [place] % (Auto) 11.0 % (0.0-13.0) 11/11/19 04:05 Eos % (Auto) 0.0 % (0.9-2.9) L 11/11/19 04:05 Baso % (Auto) 0.1 % (0.2-1.0) L 11/11/19 04:05 Neut # (Auto) 2.5 x10^3/uL (2.2-4.8) 11/11/19 04:05 Lymph # (Auto) 0.5 X10^3/uL (1.3-2.9) L 11/11/19 04:05 [place] # (Auto) 0.4 x10^3/uL (0.3-0.8) 11/11/19 04:05 Eos # (Auto) 0.0 x10^3/uL (0.0-0.2) 11/11/19 04:05 Baso # (Auto) 0.0 X10^3/uL (0.0-0.1) 11/11/19 04:05 Absolute Nucleated RBC 0.0 /100WBC 11/11/19 04:05 Total Counted 100 11/10/19 04:15 Neutrophils % (Manual) 75 % (39-76) 11/10/19 04:15 Lymphocytes % (Manual) 19 % (13-43) 11/10/19 04:15 Monocytes % (Manual) 6 % (4-9) 11/10/19 04:15 Plt Morphology Comment Normal (NORMAL) 11/10/19 04:15 RBC Morphology Normal (NORMAL) 11/10/19 04:15 Sample Site Lr 11/08/19 18:23 ABG pH 7.430 (7.35-7.45) 11/08/19 18:23 ABG pCO2 44.0 mmHg (35.0-45.0) 11/08/19 18:23 ABG pO2 88.0 mmHg (80.0-100.0) 11/08/19 18:23 ABG HCO3 29.2 mmol/L (22-26) H 11/08/19 18:23 ABG O2 Saturation 97.0 % (90-100) 11/08/19 18:23 ABG Base Excess 4.3 mmol/L (-2.0-2.0) H 11/08/19 18:23 David Test Pos 11/08/19 18:23 A-a Gradient 7.0 mmHg 11/08/19 18:23 FiO2 21.0 11/08/19 18:23 Blood Gas Comments Jeff well cb 11/08/19 18:23 Sodium 140 mmol/L (136-145) 11/11/19 04:05 Corrected Sodium 142 mmol/L (136-145) 11/11/19 04:05 Potassium 4.0 mmol/L (3.5-5.1) 11/11/19 04:05 Chloride 105 mmol/L (98-107) 11/11/19 04:05 Carbon Dioxide 26.1 mmol/L (21-32) 11/11/19 04:05 BUN 24 mg/dL (7-18) H 11/11/19 04:05 Creatinine 1.14 mg/dL (0.55-1.02) H 11/11/19 04:05 Est GFR (MDRD) Af Amer > 60 (>60) 11/11/19 04:05 Est GFR (MDRD) Non-Af 50 (>60) L 11/11/19 04:05 Glucose 179 mg/dL (65-99) H 11/11/19 04:05 Lactic Acid 1.0 mmol/L (0.4-2.0) 11/08/19 18:00 Calcium 7.8 mg/dL (8.5-10.1) L 11/11/19 04:05 Corrected Calcium 8.8 mg/dL (8.5-10.1) 11/11/19 04:05 Ferritin 244 ng/mL (8-252) 11/08/19 18:00 Total Bilirubin 0.40 mg/dL (0.2-1.0) 11/11/19 04:05 AST 21 Units/L (15-37) 11/11/19 04:05 ALT 14 Units/L (12-78) 11/11/19 04:05 Alkaline Phosphatase 74 Units/L (46-116) 11/11/19 04:05 Creatine Kinase 55 Units/L (26-192) 11/08/19 18:00 CK-MB (CK-2) < 1.0 ng/mL (0-4.0) 11/08/19 18:00 CK/CKMB % Calc 1.8 % (<4) 11/08/19 18:00 Troponin I < 0.02 ng/mL (0-1.5) 11/08/19 18:00 C-Reactive Protein 10.00 mg/L (0-3.0) H 11/11/19 04:05 Total Protein 6.1 g/dL (6.4-8.2) L 11/11/19 04:05 Albumin 2.8 g/dL (3.4-5.0) L 11/11/19 04:05 Globulin 3.3 g/dL (2.5-4.5) 11/11/19 04:05 Albumin/Globulin Ratio 0.8 Ratio (1.1-2.1) L 11/11/19 04:05 Plan (1) Pneumonia: Status: Acute Plan: Awaiting COVID19 results. Continue remdesivir, IV solumedrol, Zosyn, bronchodilators. Pneumonia protocol
[2019-11-11] MEDS: NS 1000 ML 1,000 ML IV SCH ×2 (11:04→22:18)
[2019-11-11] MEDS: HumuLIN R SC PRN ×2 (12:30→17:01)
[2019-11-11] MEDS: APRESOLINE INJ 20 MG VIAL IVP PRN ×2 (12:35→20:38)
[2019-11-11] MEDS ORDERED: ATIVAN INJ 2 MG VIAL IVP ONE (14:52)
[2019-11-11] MEDS ORDERED: ATIVAN INJ 2 MG VIAL IVP NR (16:00)
[2019-11-11] MEDS: REMDESIVIR (INVESTIGATIONAL DRUG GS-5734) 100 MG in NS 250 ML IV 250 ML IV SCH (20:36)
[2019-11-11] MEDS: LIPITOR TAB 10 MG PO SCH (20:37)
[2019-11-11] MEDS: NICOTINE PATCH TD SCH (20:37)
[2019-11-11] MEDS: TYLENOL 325 MG TAB PO PRN (22:19)
[2019-11-12 05:19] LABS: BASOPHILS % (AUTO) 0.6 % (0.2-1.0); HEMATOCRIT 32.7 % (36.0-47.0); HEMOGLOBIN 10.9 g/dL (12.0-16.0); LYMPHOCYTES # (AUTO) 0.8 X10^3/uL (1.3-2.9); LYMPHOCYTES % (AUTO) 17.6 % (21.0-51.0); MEAN CORPUSCULAR HEMOGLOBIN 28.9 pg (27.0-34.0); MEAN CORPUSCULAR HGB CONC 33.4 g/dL (33.0-35.0); MEAN CORPUSCULAR VOLUME 86.6 fL (80.0-100.0); MEAN PLATELET VOLUME 7.6 fL (7.4-11.0); MONOCYTES # (AUTO) 0.7 x10^3/uL (0.3-0.8); MONOCYTES % (AUTO) 16.7 % (0.0-13.0); NEUTROPHILS # (AUTO) 2.9 x10^3/uL (2.2-4.8); NEUTROPHILS % (AUTO) 65.1 % (42.0-75.0); PLATELET COUNT 189 X10^3/uL (150.0-450.0); RED BLOOD COUNT 3.78 X10^6/uL (3.5-5.4); RED CELL DISTRIBUTION WIDTH 14.6 % (11.6-16.5); WHITE BLOOD COUNT 4.4 X10^3/uL (3.6-10.0)
[2019-11-12 05:35] LABS: ALANINE AMINOTRANSFERASE 15 Units/L (12-78); ALBUMIN 2.9 g/dL (3.4-5.0); ALKALINE PHOSPHATASE 69 Units/L (46-116); ASPARTATE AMINO TRANSFERASE 17 Units/L (15-37); BLOOD UREA NITROGEN 23 mg/dL (7-18); CALCIUM 7.7 mg/dL (8.5-10.1); CARBON DIOXIDE 30.3 mmol/L (21-32); CHLORIDE 102 mmol/L (98-107); COR CA(FOR HYPOALB) 8.6 mg/dL (8.5-10.1); COR NA(FOR HYPERGLY) 138 mmol/L (136-145); CREATININE 1.03 mg/dL (0.55-1.02); SODIUM 137 mmol/L (136-145); TOTAL PROTEIN 6.1 g/dL (6.4-8.2); eGFR NON BLACK RACES 56 (>60)
[2019-11-12] MEDS: SOLU-Medrol 40 MG VIAL IVP SCH (06:37)
[2019-11-12] MEDS: ZOSYN VIAL 3.375 GRAMS 3.375 G in NS 100 ML IV + SPIKE MINIBAG* 100 ML IV SCH (06:37)
[2019-11-12] MEDS ORDERED: ATIVAN TAB 0.5 MG PO PRN (08:40)
[2019-11-12] MEDS: CYMBALTA PO SCH (08:41)
[2019-11-12] MEDS: APRESOLINE INJ 20 MG VIAL IVP PRN (08:41)
[2019-11-12] MEDS: COLACE CAP 100 MG PO SCH (08:41)
[2019-11-12] MEDS: LOVENOX INJ 40 MG SYR SC SCH (08:43)
[2019-11-12] MEDS: PEPCID TAB 20 MG PO SCH (08:43)
[2019-11-12] MEDS: VITAMIN C PO SCH (08:44)
[2019-11-12] MEDS: TOPROL XL PO SCH (08:44)
[2019-11-12] MEDS: PriLOSEC PO SCH (08:44)
[2019-11-12] MEDS: VITAMIN D3 125 mcg (5,000 UNITS) PO SCH (08:45)
[2019-11-12] MEDS: ZESTRIL TAB 10 MG PO SCH (08:45)
[2019-11-12] MEDS: ZINC SULFATE PO SCH (08:45)
[2019-11-12] MEDS ORDERED: HYDROCHLOROTHIAZIDE 12.5 MG CAP PO SCH (09:00)
--- NOTE | 2019-11-12 09:05 | W.DIS.FURT ---
Summary of Discharge Discharge Summary of Date Date of Exam: 11/12/19 Admission Date Date of Admission: 11/09/19 Admission Diagnosis Hospital Course: Pt is a 74 yo f pmhx COPD, HTN, Dementia, admitted for pneumonia. She was exposed to COVID19 individual and was tested on 11/06(results negative). On day of discharge, pt was stable, uses baseline supplemental O2 of 2L nc but has required 4. She was treated with Remdesivir, IV Solumedrol, and antibiotics Zosyn, and bronchodilators. Labs/imaging: Wbc 4.4, Hgb 10.9, Plt 189, Na 137, K 3.6, Cr 1.03, Gluc 153, CRP 49.2>16.9>10, BloodCx negative. Repeat COVID testing pending. Pt responded well to treatments. Pt instructed to complete course of Levaquin and prednisone. Instructions for facility to titrate supplemental O2 back to baseline as tolerated. Pt discharged in stable condition, instructed to follow up with pcp in 3-5 days. Vital Signs: Vital Signs (72 hours) 11/09/19 09:15 11/09/19 09:30 11/09/19 09:45 Temperature Pulse Rate 67 76 67 Pulse Rate [Right Brachial] Respiratory Rate Blood Pressure Blood Pressure [Right Arm] O2 Sat by Pulse Oximetry 93 L 99 93 L 11/09/19 10:00 11/09/19 10:06 11/09/19 10:15 Temperature Pulse Rate 67 64 67 Pulse Rate [Right Brachial] Respiratory Rate Blood Pressure 151/84 Blood Pressure [Right Arm] O2 Sat by Pulse Oximetry 90 L 95 91 L 11/09/19 10:30 11/09/19 10:45 11/09/19 11:00 Temperature Pulse Rate 65 74 73 Pulse Rate [Right Brachial] Respiratory Rate Blood Pressure 110/72 158/91 Blood Pressure [Right Arm] O2 Sat by Pulse Oximetry 93 L 96 96 11/09/19 11:15 11/09/19 11:30 11/09/19 11:45 Temperature Pulse Rate 70 68 70 Pulse Rate [Right Brachial] Respiratory Rate Blood Pressure 125/78 Blood Pressure [Right Arm] O2 Sat by Pulse Oximetry 94 L 93 L 96 11/09/19 12:01 11/09/19 12:02 11/09/19 12:15 Temperature Pulse Rate 77 76 Pulse Rate [Right Brachial] Respiratory Rate Blood Pressure 179/94 Blood Pressure [Right Arm] O2 Sat by Pulse Oximetry 90 L 94 L 96 11/09/19 12:30 11/09/19 12:45 11/09/19 13:00 Temperature Pulse Rate 73 72 68 Pulse Rate [Right Brachial] Respiratory Rate Blood Pressure Blood Pressure [Right Arm] O2 Sat by Pulse Oximetry 96 97 97 11/09/19 13:15 11/09/19 13:30 11/09/19 13:37 Temperature Pulse Rate 76 71 80 Pulse Rate [Right Brachial] Respiratory Rate Blood Pressure Blood Pressure [Right Arm] O2 Sat by Pulse Oximetry 97 93 L 11/09/19 13:42 11/09/19 13:45 11/09/19 14:09 Temperature Pulse Rate 85 Pulse Rate [Right Brachial] Respiratory Rate Blood Pressure 180/100 Blood Pressure [Right Arm] O2 Sat by Pulse Oximetry 97 90 L 11/09/19 14:10 11/09/19 14:15 11/09/19 14:30 Temperature Pulse Rate 123 H 78 Pulse Rate [Right Brachial] Respiratory Rate Blood Pressure 175/98 165/96 Blood Pressure [Right Arm] O2 Sat by Pulse Oximetry 88 L 94 L 11/09/19 14:45 11/09/19 15:00 11/09/19 15:15 Temperature Pulse Rate 72 74 77 Pulse Rate [Right Brachial] Respiratory Rate Blood Pressure 153/91 Blood Pressure [Right Arm] O2 Sat by Pulse Oximetry 94 L 94 L 96 11/09/19 15:30 11/09/19 15:45 11/09/19 16:00 Temperature Pulse Rate 73 84 81 Pulse Rate [Right Brachial] Respiratory Rate Blood Pressure 154/92 148/88 Blood Pressure [Right Arm] O2 Sat by Pulse Oximetry 97 95 94 L 11/09/19 16:15 11/09/19 17:00 11/09/19 18:00 Temperature 98.4 F Pulse Rate Pulse Rate [Right Brachial] 74 79 70 Respiratory Rate 20 34 H 32 H Blood Pressure Blood Pressure [Right Arm] 182/96 153/92 138/64 O2 Sat by Pulse Oximetry 96 97 87 L 11/09/19 19:00 11/09/19 20:00 11/09/19 20:25 Temperature 98.0 F Pulse Rate 93 H Pulse Rate [Right Brachial] 94 H 93 H Respiratory Rate 22 26 H Blood Pressure Blood Pressure [Right Arm] 163/88 157/85 O2 Sat by Pulse Oximetry 95 95 92 L 11/09/19 21:00 11/09/19 21:52 11/09/19 22:00 Temperature Pulse Rate Pulse Rate [Right Brachial] 92 H 87 Respiratory Rate 36 H 20 26 H Blood Pressure Blood Pressure [Right Arm] 155/95 O2 Sat by Pulse Oximetry 98 11/09/19 22:52 11/09/19 23:00 11/10/19 00:00 Temperature 98.3 F Pulse Rate Pulse Rate [Right Brachial] 81 83 Respiratory Rate 20 31 H 24 Blood Pressure Blood Pressure [Right Arm] 170/85 168/85 O2 Sat by Pulse Oximetry 96 83 L 11/10/19 01:00 11/10/19 02:00 11/10/19 03:00 Temperature Pulse Rate Pulse Rate [Right Brachial] 86 82 81 Respiratory Rate 36 H 24 18 Blood Pressure Blood Pressure [Right Arm] 113/57 144/71 174/84 O2 Sat by Pulse Oximetry 96 93 L 11/10/19 04:00 11/10/19 05:00 11/10/19 06:00 Temperature 98.0 F Pulse Rate Pulse Rate [Right Brachial] 85 89 96 H Respiratory Rate 28 H 38 H 20 Blood Pressure Blood Pressure [Right Arm] 157/97 159/91 143/93 O2 Sat by Pulse Oximetry 95 11/10/19 07:00 11/10/19 08:00 11/10/19 08:10 Temperature 97.9 F Pulse Rate 84 Pulse Rate [Right Brachial] 78 76 Respiratory Rate 29 H 24 Blood Pressure Blood Pressure [Right Arm] 149/87 176/103 O2 Sat by Pulse Oximetry 98 98 100 11/10/19 09:00 11/10/19 10:00 11/10/19 11:00 Temperature Pulse Rate Pulse Rate [Right Brachial] 85 85 99 H Respiratory Rate 24 24 22 Blood Pressure Blood Pressure [Right Arm] 137/74 141/75 168/91 O2 Sat by Pulse Oximetry 95 98 96 11/10/19 12:00 11/10/19 13:00 11/10/19 14:00 Temperature 98.2 F Pulse Rate Pulse Rate [Right Brachial] 84 88 89 Respiratory Rate 22 22 24 Blood Pressure Blood Pressure [Right Arm] 162/85 167/97 O2 Sat by Pulse Oximetry 98 98 98 11/10/19 15:00 11/10/19 16:00 11/10/19 17:00 Temperature 98.2 F Pulse Rate Pulse Rate [Right Brachial] 91 H 86 81 Respiratory Rate 23 20 19 Blood Pressure Blood Pressure [Right Arm] 190/100 172/97 163/92 O2 Sat by Pulse Oximetry 96 95 96 11/10/19 18:00 11/10/19 19:00 11/10/19 20:00 Temperature 98.0 F Pulse Rate Pulse Rate [Right Brachial] 92 H 87 81 Respiratory Rate 22 20 19 Blood Pressure Blood Pressure [Right Arm] 137/88 131/75 158/92 O2 Sat by Pulse Oximetry 97 97 96 11/10/19 21:00 11/10/19 22:00 11/10/19 23:00 Temperature Pulse Rate Pulse Rate [Right Brachial] 79 76 73 Respiratory Rate 20 17 20 Blood Pressure Blood Pressure [Right Arm] 166/96 156/83 159/104 O2 Sat by Pulse Oximetry 98 96 96 11/11/19 00:00 11/11/19 01:00 11/11/19 02:00 Temperature 98.5 F Pulse Rate Pulse Rate [Right Brachial] 71 70 70 Respiratory Rate 16 22 27 H Blood Pressure Blood Pressure [Right Arm] 163/95 170/96 178/95 O2 Sat by Pulse Oximetry 97 98 95 11/11/19 03:00 11/11/19 04:00 11/11/19 05:00 Temperature Pulse Rate Pulse Rate [Right Brachial] 70 85 73 Respiratory Rate 17 27 H 19 Blood Pressure Blood Pressure [Right Arm] 159/82 196/122 195/109 O2 Sat by Pulse Oximetry 93 L 97 98 11/11/19 06:00 11/11/19 07:00 11/11/19 08:00 Temperature 98.1 F Pulse Rate Pulse Rate [Right Brachial] 71 80 70 Respiratory Rate 14 29 H 15 Blood Pressure Blood Pressure [Right Arm] 144/76 196/116 183/107 O2 Sat by Pulse Oximetry 97 96 94 L 11/11/19 09:00 11/11/19 10:00 11/11/19 11:00 Temperature Pulse Rate Pulse Rate [Right Brachial] 80 71 71 Respiratory Rate 20 15 21 Blood Pressure Blood Pressure [Right Arm] 175/108 158/83 190/101 O2 Sat by Pulse Oximetry 94 L 96 94 L 11/11/19 12:00 11/11/19 13:00 11/11/19 14:00 Temperature 98.2 F Pulse Rate Pulse Rate [Right Brachial] 75 74 74 Respiratory Rate 22 21 21 Blood Pressure Blood Pressure [Right Arm] 173/103 168/108 179/106 O2 Sat by Pulse Oximetry 98 99 99 11/11/19 15:00 11/11/19 16:00 11/11/19 17:00 Temperature 98.3 F Pulse Rate Pulse Rate [Right Brachial] 77 83 74 Respiratory Rate 24 23 17 Blood Pressure Blood Pressure [Right Arm] 203/110 163/91 189/94 O2 Sat by Pulse Oximetry 99 97 97 11/11/19 18:00 11/11/19 19:00 11/11/19 20:00 Temperature 98.3 F Pulse Rate Pulse Rate [Right Brachial] 91 H 87 83 Respiratory Rate 31 H 20 19 Blood Pressure Blood Pressure [Right Arm] 158/88 158/101 150/85 O2 Sat by Pulse Oximetry 99 98 97 11/11/19 20:52 11/11/19 21:00 11/11/19 22:00 Temperature Pulse Rate 81 Pulse Rate [Right Brachial] 89 79 Respiratory Rate 18 22 Blood Pressure Blood Pressure [Right Arm] 178/92 166/92 O2 Sat by Pulse Oximetry 98 98 99 11/11/19 22:19 11/11/19 23:00 11/11/19 23:19 Temperature Pulse Rate Pulse Rate [Right Brachial] 78 Respiratory Rate 20 18 20 Blood Pressure Blood Pressure [Right Arm] 166/92 O2 Sat by Pulse Oximetry 98 11/12/19 00:00 11/12/19 01:00 11/12/19 02:00 Temperature Pulse Rate Pulse Rate [Right Brachial] 79 76 73 Respiratory Rate 22 19 21 Blood Pressure Blood Pressure [Right Arm] 164/97 178/92 149/79 O2 Sat by Pulse Oximetry 99 95 97 11/12/19 03:00 11/12/19 04:00 11/12/19 05:00 Temperature 98.8 F Pulse Rate Pulse Rate [Right Brachial] 76 81 83 Respiratory Rate 20 21 19 Blood Pressure Blood Pressure [Right Arm] 183/97 178/98 164/97 O2 Sat by Pulse Oximetry 98 97 98 11/12/19 06:00 Temperature Pulse Rate Pulse Rate [Right Brachial] 83 Respiratory Rate 16 Blood Pressure Blood Pressure [Right Arm] 176/97 O2 Sat by Pulse Oximetry 99 Labs: Laboratory Last Values WBC 4.4 X10^3/uL (3.6-10.0) 11/12/19 04:35 RBC 3.78 X10^6/uL (3.5-5.4) 11/12/19 04:35 Hgb 10.9 g/dL (12.0-16.0) L 11/12/19 04:35 Hct 32.7 % (36.0-47.0) L 11/12/19 04:35 MCV 86.6 fL (80.0-100.0) 11/12/19 04:35 MCH 28.9 pg (27.0-34.0) 11/12/19 04:35 MCHC 33.4 g/dL (33.0-35.0) 11/12/19 04:35 RDW 14.6 % (11.6-16.5) 11/12/19 04:35 Plt Count 189 X10^3/uL (150.0-450.0) 11/12/19 04:35 Plt Count Comment Adequate (ADEQUATE) 11/10/19 04:15 MPV 7.6 fL (7.4-11.0) 11/12/19 04:35 Neut % (Auto) 65.1 % (42.0-75.0) 11/12/19 04:35 Lymph % (Auto) 17.6 % (21.0-51.0) L 11/12/19 04:35 [place] % (Auto) 16.7 % (0.0-13.0) H 11/12/19 04:35 Eos % (Auto) 0.0 % (0.9-2.9) L 11/12/19 04:35 Baso % (Auto) 0.6 % (0.2-1.0) 11/12/19 04:35 Neut # (Auto) 2.9 x10^3/uL (2.2-4.8) 11/12/19 04:35 Lymph # (Auto) 0.8 X10^3/uL (1.3-2.9) L 11/12/19 04:35 [place] # (Auto) 0.7 x10^3/uL (0.3-0.8) 11/12/19 04:35 Eos # (Auto) 0.0 x10^3/uL (0.0-0.2) 11/12/19 04:35 Baso # (Auto) 0.0 X10^3/uL (0.0-0.1) 11/12/19 04:35 Absolute Nucleated RBC 0.2 /100WBC 11/12/19 04:35 Total Counted 100 11/10/19 04:15 Neutrophils % (Manual) 75 % (39-76) 11/10/19 04:15 Lymphocytes % (Manual) 19 % (13-43) 11/10/19 04:15 Monocytes % (Manual) 6 % (4-9) 11/10/19 04:15 Plt Morphology Comment Normal (NORMAL) 11/10/19 04:15 RBC Morphology Normal (NORMAL) 11/10/19 04:15 Sample Site Lr 11/08/19 18:23 ABG pH 7.430 (7.35-7.45) 11/08/19 18:23 ABG pCO2 44.0 mmHg (35.0-45.0) 11/08/19 18:23 ABG pO2 88.0 mmHg (80.0-100.0) 11/08/19 18:23 ABG HCO3 29.2 mmol/L (22-26) H 11/08/19 18:23 ABG O2 Saturation 97.0 % (90-100) 11/08/19 18:23 ABG Base Excess 4.3 mmol/L (-2.0-2.0) H 11/08/19 18:23 David Test Pos 11/08/19 18:23 A-a Gradient 7.0 mmHg 11/08/19 18:23 FiO2 21.0 11/08/19 18:23 Blood Gas Comments Jeff well cb 11/08/19 18:23 Sodium 137 mmol/L (136-145) 11/12/19 04:35 Corrected Sodium 138 mmol/L (136-145) 11/12/19 04:35 Potassium 3.6 mmol/L (3.5-5.1) 11/12/19 04:35 Chloride 102 mmol/L (98-107) 11/12/19 04:35 Carbon Dioxide 30.3 mmol/L (21-32) 11/12/19 04:35 BUN 23 mg/dL (7-18) H 11/12/19 04:35 Creatinine 1.03 mg/dL (0.55-1.02) H 11/12/19 04:35 Est GFR (MDRD) Af Amer > 60 (>60) 11/12/19 04:35 Est GFR (MDRD) Non-Af 56 (>60) L 11/12/19 04:35 Glucose 153 mg/dL (65-99) H 11/12/19 04:35 Lactic Acid 1.0 mmol/L (0.4-2.0) 11/08/19 18:00 Calcium 7.7 mg/dL (8.5-10.1) L 11/12/19 04:35 Corrected Calcium 8.6 mg/dL (8.5-10.1) 11/12/19 04:35 Ferritin 244 ng/mL (8-252) 11/08/19 18:00 Total Bilirubin 0.30 mg/dL (0.2-1.0) 11/12/19 04:35 AST 17 Units/L (15-37) 11/12/19 04:35 ALT 15 Units/L (12-78) 11/12/19 04:35 Alkaline Phosphatase 69 Units/L (46-116) 11/12/19 04:35 Creatine Kinase 55 Units/L (26-192) 11/08/19 18:00 CK-MB (CK-2) < 1.0 ng/mL (0-4.0) 11/08/19 18:00 CK/CKMB % Calc 1.8 % (<4) 11/08/19 18:00 Troponin I < 0.02 ng/mL (0-1.5) 11/08/19 18:00 C-Reactive Protein 5.50 mg/L (0-3.0) H 11/12/19 04:35 Total Protein 6.1 g/dL (6.4-8.2) L 11/12/19 04:35 Albumin 2.9 g/dL (3.4-5.0) L 11/12/19 04:35 Globulin 3.2 g/dL (2.5-4.5) 11/12/19 04:35 Albumin/Globulin Ratio 0.9 Ratio (1.1-2.1) L 11/12/19 04:35 Reason For Visit: PNEUMONIA, HYPOTENSION, AMS Discharge Date Discharge Date: 11/15/19 Discharge Diagnosis All Active Problems (Updated 11/09/19 @ 16:05 by Tania Villanueva) Pneumonia (Acute) Hypotension (Acute) COVID-19 (Acute) Plan of Treatment: Continue with present treatment and follow up plan. Pt is to keep follow up appointment as instructed and take medications as ordered. Discharge Medications Discharge Medications: iodine Allergy (Verified 11/08/19 17:11) NSAIDS (Non-Steroidal Anti-Inflamma Allergy (Verified 11/08/19 17:11) CONTINUE taking the following medications Spiriva with HandiHaler 1 cap INHALATION DAILY 11/08/19 [History] albuterol sulfate 2 puff INHALATION Q6H PRN 11/08/19 [History] atorvastatin 10 mg PO QHS 11/08/19 [History] calcium carbonate [Tums] 200 mg PO ONCE 11/08/19 [History] dextromethorphan-guaifenesin [Tussin DM] 10 ml PO Q4-6H PRN 11/08/19 [History] docusate sodium [Colace] 100 mg PO DAILY 11/08/19 [History] duloxetine 60 mg PO DAILY 11/08/19 [History] famotidine 20 mg PO BID 11/08/19 [History] hydrochlorothiazide 12.5 mg PO QAM 11/08/19 [History] lisinopril 10 mg PO DAILY 11/08/19 [History] metoprolol succinate 25 mg PO DAILY 11/08/19 [History] nicotine 1 patch TRANSDERMAL Q24H 11/08/19 [History] omeprazole 20 mg PO DAILY 11/08/19 [History] quetiapine 100 mg PO TID 11/08/19 [History] temazepam 7.5 mg PO QHS 11/08/19 [History] tramadol 50 mg PO BID PRN 11/08/19 [History] New Prescriptions levofloxacin [Levaquin] 750 mg PO Q24H #3 tab 11/12/19 [Rx] prednisone 20 mg PO DAILY 3 Days #3 tab 11/12/19 [Rx] Discharge Disposition Discharge Disposition: SNF Discharge Condition: Stable
[2019-11-12] MEDS: HumuLIN R SC PRN (12:53)
[2019-11-12 14:23] VITALS: BP 142/84
[2019-11-12] MEDS: NS 1000 ML 1,000 ML IV SCH (14:25)
== END 2019-11-12 14:00 | DRG 177 ==
LOC: ER 17:03 → ICU 11-09 15:44
PROVIDERS: ADMIT Family Medicine; ATTEND Family Medicine
DX: J44.9 Chronic obstructive pulmonary disease, unspecified; U07.1 COVID-19; I95.9 Hypotension, unspecified; I10 Essential (primary) hypertension; F03.90 Unspecified dementia, unspecified severity, without behavioral disturbance, psychotic disturbance, mood disturbance, and anxiety; J12.89 Other viral pneumonia